=== PATIENT | female | born 1970 | race Caucasian/White ===

== ENCOUNTER 2019-09-17 12:33 | Emergency (ER) | payer BC, SELFPAY ==
[2019-09-17 12:38] VITALS: BP 115/68; PULSE 91; RESP 20; TEMP 37.5; O2SAT 100
--- NOTE | 2019-09-17 12:40 | ED.SKABFB ---
HPI - Skin/Abscess/Foreign Bdy General Chief complaint: Skin/Abscess/Foreign Body Stated complaint: RASH Time Seen by Provider: 09/17/19 12:44 Source: patient and RN notes reviewed Mode of arrival: ambulatory Limitations: no limitations History of Present Illness HPI narrative: 49-year-old female presents with concern for bilateral itching hands, burning palms that started today. She denies any new personal care products, new foods, new medicines. Reports she has been taking Mucinex for a cold, however she has taken Mucinex many times in the past with no similar effects. MD complaint: rash Related Data Home Medications Medication Instructions Recorded Confirmed guaifenesin [Mucinex] 1,200 mg PO Q12H 09/17/19 09/17/19 Allergies Allergy/AdvReac Type Severity Reaction Status Date / Time No Known Allergies Allergy Verified 09/17/19 12:44 Review of Systems Review of Systems: Narrative: CONSTITUTIONAL: Denies malaise, chills, sweats, or fever. EYES: Denies visual changes, redness, or discharge. ENT: Denies rhinorrhea, congestion, sinus pain, otalgia or sore throat. CARDIOVASCULAR: Denies chest pain, palpitations, or edema. RESPIRATORY: Denies cough or dyspnea. GASTROINTESTINAL: Denies abdominal pain, nausea, vomiting, diarrhea, SKIN: Reports bilateral hand itching, palmar burning, hives. Denies any other rash All systems reviewed & are unremarkable except as noted in HPI and below PMFSH Comments At time of signature, agree with nursing past medical, surgical, social and family history. There is no relevant family history pertinent to the presenting complaint Exam Narrative: Exam Narrative: GENERAL: Well-appearing, well-nourished, and in no acute distress. HEAD: Normocephalic EYES: PERRLA, conjunctivae clear ENT: Mucous membranes moist. Oropharynx without edema, erythema or lesions. No angioedema noted NECK: Supple. No lymphadenopathy. CHEST: No respiratory distress. Clear to auscultation. No bony deformities, no asymmetry. Speaks in full sentences. HEART: Regular rate and rhythm. No murmur heard. Normal peripheral pulses. SKIN: Warm, dry. Urticarial hives noted on the dorsal aspect of both hands, palmar aspect erythematous bilaterally NEURO: Alert and oriented x3. PSYCH: Normal mood and affect Course Course Emergency Course: Patient is aware of diagnosis, understands and agrees to treatment plan. Anticipatory guidance given. Patient agrees to follow-up as directed and is aware of reasons to seek care at the emergency department. Portions of this record may have been created with voice recognition software Vital Signs Vital signs: Vital Signs Temperature 99.5 F 09/17/19 12:38 Pulse Rate 91 09/17/19 12:38 Respiratory Rate 20 09/17/19 12:38 Blood Pressure 115/68 09/17/19 12:38 Pulse Oximetry 100 09/17/19 12:38 Temperature 99.5 F 09/17/19 12:38 Pulse Rate 91 09/17/19 12:38 Respiratory Rate 09/17/19 12:38 Blood Pressure 115/68 09/17/19 12:38 Pulse Oximetry 100 09/17/19 12:38 Reviewed. MDM - Skin/Abscess/Foreign Bdy MDM Narrative Medical decision making narrative: Does not appear at this time to be erythema multiforme, bullous, SJS, TEN; no evidence at this time to suggest RMSF, endocarditis or Lyme disease; patient looks well, nontoxic and is tolerating oral intake; no neurologic signs or symptoms; no headache, photophobia or neck pain; afebrile; appropriate for initial outpatient treatment; discussed the importance of follow-up, patient agrees; question, viral exanthema, contact dermatitis, allergic dermatitis, eczema, urticaria. No soft palate or uvula edema, no tongue, lip edema or other mucosal involvement, no respiratory compromise, no stridor, no wheezing, no wheezing, no history of syncope, no hypotension, no nausea, vomiting, or diarrhea. Instructed patient to go to nearest ER immediately for any worsening symptoms including but not limited to: fever, spreading rash
== END 2019-09-17 12:58 | disposition home or self-care (01) ==
PROVIDERS: Emergency Provider Nurse Practitioner; PCP Internal Medicine
DX: L50.9 Urticaria, unspecified (principal)
CPT/HCPCS: 99213; G0463

== ENCOUNTER 2019-09-17 22:01 | Emergency (ER) | payer BC, SELFPAY ==
--- NOTE | ~2019-09-17 | XR_ITS ---
EXAMINATION: XR chest 2V 09/17/2019 22:57 INDICATION: Cough and congestion with fever PROCEDURE: 2 view chest COMPARISON: 01/30/2016 FINDINGS: The lungs are clear. The cardiomediastinal silhouette is within normal limits. There are no pleural effusions. There is no pneumothorax suspected. IMPRESSION: 1: NO ACUTE CARDIOPULMONARY DISEASE. Reviewed, dictated and finalized at location A. [employer]
--- NOTE | 2019-09-17 22:10 | ED.FEVER ---
HPI - Fever General Chief Complaint: Fever Stated Complaint: headache, cough Time Seen by Provider: 09/17/19 22:09 Source: patient Mode of arrival: ambulatory Limitations: no limitations History of Present Illness HPI Narrative: The pt is a 49 y/o female who presents to the ED with c/o cough, fever, chills, myalgia, and rash. The pt states that all of her sx began 3 days ago except the rash, which began this morning. The rash is painful and is located on her distal forearms and hands bilaterally. She was seen at Urgent Care for her rash earlier today, where she was given a topical medication and advised to take Benadryl. She notes that her other sx have been worsening since they began 3 days ago and that she has been trying Mucinex with little relief. The pt also reports sore throat, pruritus around her rash, and SOB, but denies wheezing, nausea, or vomiting. She notes that she has never had this type of rash before and that she is unaware of any recent sick contact or bug bites. The pt states that she has no other medical problems. elicited complaint: fever and other (cough, chills, myalgia, rash) Onset (ago): day(s) (all sx began 3 days ago but rash began this morning) Associated symptoms: sore throat, shortness of breath and other (pruritus) Treatments prior to arrival fever: cold medicine (Mucinex) Related Data Home Medications Medication Instructions Recorded Confirmed guaifenesin [Mucinex] 1,200 mg PO Q12H 09/17/19 09/17/19 Allergies Allergy/AdvReac Type Severity Reaction Status Date / Time No Known Allergies Allergy Verified 09/17/19 12:44 Review of Systems Review of Systems: All systems reviewed & are unremarkable except as noted in HPI and below Constitutional: Constitutional: Reports chills and Reports fever(s) ENT: Reports sore throat Respiratory: Respiratory: Reports cough, Reports dyspnea and Denies wheezing Gastrointestinal: Gastrointestinal: Denies nausea and Denies vomiting Musculoskeletal: Musculoskeletal: Reports myalgias Integumentary/Breasts: Skin/Breast: Reports pruritus and Reports rash PMFSH Past Medical History Medical History (Updated 09/18/19 @ 00:00 by Case Cruz) Anxiety Fibroids Surgical History Surgical History (Updated 09/17/19 @ 22:22 by Chikis Cramer) H/O local excision of skin lesion History of bladder surgery TVT Hx of appendectomy Hx of cholecystectomy Social History Social History (Updated 09/17/19 @ 22:24 by Chikis Cramer) Smoking status: Never smoker Exam Const: General: no acute distress and ill appearing Nutritional Appearance: well nourished HENMT: Mouth: Yes lip normal and Yes moist mucous membranes Eyes: Conjunctivae: conjunctivae normal Pupils: Equal, round and reactive pupils present Resp: Effort & Inspection: normal respiratory effort Auscultation: wheezes (mild diffuse) Cardio: Rate: regular rate Heart sounds: no murmurs GI: GI Palp: Yes Soft to palpation and No Tenderness to palpation present (GI) Auscultation: normal bowel sounds Back/Spine/Pelvis: Back: other (full ROM) Skin: General skin exam: other (uriticaria on forearms and hands bilaterally) Neuro: General: patient oriented x3 Speech: normal speech Extrem: General: full ROM Psych: Mental Status: mental status grossly normal Affect: normal affect Course Vital Signs Vital signs: Vital Signs Temperature 38.1 C H 09/17/19 22:11 Pulse Rate 112 H 09/17/19 22:11 Respiratory Rate 18 09/17/19 22:11 Blood Pressure 133/77 09/17/19 22:11 Pulse Oximetry 97 09/17/19 22:11 Temperature 38.1 C H 09/17/19 22:11 Pulse Rate 122 H 09/17/19 22:42 Respiratory Rate 20 09/17/19 22:42 Blood Pressure 133/77 09/17/19 22:11 Pulse Oximetry 97 09/17/19 22:11 MDM - Fever Lab Data Labs: Influenza A Screen Positive Reference Range: Negative Influenza B Screen Negative Reference Range: N
[2019-09-17 22:11] VITALS: BP 133/77; PULSE 112; RESP 18; TEMP 38.1; O2SAT 97
[2019-09-17 22:30] VITALS: PULSE 118; RESP 22
[2019-09-17] MEDS: KETOROLAC (*BKC) 60 MG/2 ML VIAL IM (22:34)
[2019-09-17] MEDS: ALBUTEROL SULFATE NEB 2.5 MG/0.5 ML INH 5 MG INHALATION (22:34)
[2019-09-17] MEDS: PSEUDOEPHEDRINE HCL 30 MG TABLET 60 MG PO (22:34)
[2019-09-17] MEDS: predniSONE 20 MG TABLET 60 MG PO (22:34)
[2019-09-17 22:42] VITALS: PULSE 122; RESP 20
[2019-09-17 23:58] VITALS: BP 128/77; PULSE 102; RESP 20; O2SAT 98
--- NOTE | 2019-10-18 09:37 | ED.FEVER ---
HPI - Fever General Chief Complaint: Fever Stated Complaint: headache, cough Time Seen by Provider: 09/17/19 22:09 Source: patient Mode of arrival: ambulatory Limitations: no limitations History of Present Illness HPI Narrative: She presents today with flu-like symptoms and a rash. She developed fever, congestion, myalgias, cough, and congestion a few days ago. She has been taking mucinex for her symptoms with partial relief. today she developed a raised, red, pruritic and mildly painful rash to the bilateral hands and forearms. She denies any new exposures, products. She has never had this type of rash before. Influenza testing done during triage was positive for influenza A. Associated symptoms: sore throat, shortness of breath and other (pruritus) Treatments prior to arrival fever: cold medicine (Mucinex) Related Data Home Medications Medication Instructions Recorded Confirmed guaifenesin [Mucinex] 1,200 mg PO Q12H 09/17/19 09/17/19 Allergies Allergy/AdvReac Type Severity Reaction Status Date / Time No Known Allergies Allergy Verified 09/17/19 12:44 Review of Systems Review of Systems: All systems reviewed & are unremarkable except as noted in HPI and below Constitutional: Constitutional: Reports chills, Reports fatigue and Reports fever(s) Eyes: Eyes: Denies change in vision ENT: Reports sore throat Cardiovascular: Cardiovascular: Denies chest pain Respiratory: Respiratory: Reports chest congestion, Reports cough and Reports wheezing Gastrointestinal: Gastrointestinal: Denies abdominal pain, Reports nausea and Denies vomiting Genitourinary: Genitourinary: Denies dysuria Musculoskeletal: Musculoskeletal: Reports myalgias Neurologic: Reports headache(s) Endocrine: Endocrine: Reports fatigue and Denies polydipsia [facility] Past Medical History Medical History Anxiety Fibroids Surgical History Surgical History H/O local excision of skin lesion History of bladder surgery TVT Hx of appendectomy Hx of cholecystectomy Social History Social History Smoking status: Never smoker Exam Const: General: no acute distress, alert and ill appearing acutely (mild) Orientation/consciousness: patient oriented x3 HENMT: Ears: external ears normal and TM's normal bilaterally General nose exam: Nasal discharge present Face and sinus: sinuses nontender Mouth: Yes moist mucous membranes Neck: Neck: normal visual inspection Resp: Effort & Inspection: normal respiratory effort Auscultation: clear to auscultation bilaterally Cardio: Rate: tachycardic Rhythm: regular rhythm GI: GI Palp: Yes Soft to palpation and No Tenderness to palpation present (GI) Neuro: General: patient oriented x3 and moves all extremities Speech: normal speech Extrem: General: no edema Other: erythematous papular rash of bilateral hands and wrists with minimal involvement of the palms Course Vital Signs Vital signs: Vital Signs Temperature 38.1 C H 09/17/19 22:11 Pulse Rate 112 H 09/17/19 22:11 Respiratory Rate 18 09/17/19 22:11 Blood Pressure 133/77 09/17/19 22:11 Pulse Oximetry 97 09/17/19 22:11 Temperature 38.1 C H 09/17/19 22:11 Pulse Rate 102 H 09/17/19 23:58 Respiratory Rate 20 09/17/19 23:58 Blood Pressure 128/77 09/17/19 23:58 Pulse Oximetry 98 09/17/19 23:58 MDM - Fever MDM Narrative Medical decision making narrative: The rash is most likely urticaria, could represnet rahs related to influenza. Differential Diagnosis Differential diagnosis: Likely influenza and other (urticaria, viral rash) Medical Records Attestation: I reviewed the patient's medical records. Lab Data Attestation: I reviewed the patient's lab results. Discharge Plan Discharge Clinical Impression: Influenza A, Urticaria Pat
== END 2019-09-17 23:58 | disposition home or self-care (01) ==
PROVIDERS: Emergency Provider Emergency Medicine; PCP Internal Medicine
DX: J10.1 Influenza due to other identified influenza virus with other respiratory manifestations (principal); L50.9 Urticaria, unspecified
CPT/HCPCS: 71046; 87804; 94640; 96372; 99283; A9270; J1885; J7512

== ENCOUNTER 2019-10-17 11:57 | Outpatient (CLI) | payer BC, SELFPAY ==
--- NOTE | ~2019-10-17 | XR_ITS ---
EXAMINATION: XR chest 2V DATE: 10/17/2019 12:25 INDICATION: Cough. TECHNIQUE: Frontal and lateral views of the chest were obtained. COMPARISON: Chest 2 views 09/17/2019, chest CT 06/07/2014 FINDINGS: There is minimal scarring at the lung apices. No pleural effusion or pneumothorax. The hear t size is normal. Surgical clips in the right upper quadrant are likely from cholecystectomy. IMPRESSION: 1. No acute cardiopulmonary disease. Reviewed, dictated and finalized at location A. [employer]
== END 2019-10-17 11:58 | disposition home or self-care (01) ==
LOC: ANHIMG 12:02
PROVIDERS: PCP Internal Medicine; Visit Provider Nurse Practitioner Family
DX: R05 Cough (principal)
CPT/HCPCS: 71046

== ENCOUNTER 2022-06-02 10:45 | Emergency (ER) | payer BC, SELFPAY ==
[2022-06-02 10:46] VITALS: BP 140/71; PULSE 104; RESP 18; TEMP 36.3; O2SAT 100
[2022-06-02 11:35] LABS: Influenza A QL RT-PCR Negative (Negative); Influenza B QL RT-PCR Negative (Negative); SARS-CoV-2 RNA PCR Negative
--- NOTE | 2022-06-02 12:50 | ED.URI ---
HPI - URI/Sore Throat General Chief Complaint: Upper Respiratory Infection Stated Complaint: ST, cough, cold symptoms, h/a Time Seen by Provider: 06/02/22 12:01 Source: patient Mode of arrival: ambulatory Limitations: no limitations History of Present Illness HPI Narrative: This is a 52-year-old female that presents emergency department for cold symptoms ongoing over the last couple of days. Reports sore throat, myalgias, cough. Denies fevers. Related Data Home Medications Medication Instructions Recorded Confirmed cholecalciferol (vitamin D3) 325 325 mcg PO WEEKLY 05/13/22 05/23/22 mcg (13,000 unit) capsule Allergies Allergy/AdvReac Type Severity Reaction Status Date / Time fenofibrate Allergy Mild Rash Verified 05/23/22 08:38 Review of Systems Review of Systems: CONSTITUTIONAL: Denies fever ENT: Reports rhinorrhea, congestion, sore throat RESPIRATORY: Reports cough. Denies dyspnea. All systems reviewed & are unremarkable except as noted in HPI and below PMFSH Past Medical History Medical History Anxiety Fibroids GERD (gastroesophageal reflux disease) History of postoperative nausea and vomiting Hyperlipemia Vitamin D deficiency Surgical History Surgical History H/O local excision of skin lesion History of bladder surgery (~2007) TVT History of breast augmentation (~2020) Hx of appendectomy (~2012) Hx of cholecystectomy (~1996) Hx of hysterectomy 2017 Social History Social History Smoking status: Never smoker Alcohol intake: never Substance use: never Substance use type: does not use Exam Narrative: GENERAL: Well-appearing, well-nourished, and in no acute distress. HEAD: Normocephalic, atraumatic. EYES: EOMI. ENT: Nares clear, no rhinorrhea or epistaxis. Mucous membranes moist. Oropharynx without tonsillar hypertrophy exudate or other lesions. Bilateral TMs pearly goode non-bulging NECK: Supple. No adenopathy or masses. CHEST: Clear to auscultation. No respiratory distress. No wheezes rales or rhonchi HEART: Regular rate and rhythm. No murmur heard. Normal peripheral pulses. EXTREMITIES: Normal range of motion. No edema. SKIN: Warm, dry, no rash. NEURO: No focal deficits. Alert and oriented x3. PSYCH: Normal mood and affect Course Vital Signs Vital signs: Vital Signs Temperature 97.4 F L 06/02/22 10:46 Pulse Rate 104 H 06/02/22 10:46 Respiratory Rate 18 06/02/22 10:46 Blood Pressure 140/71 06/02/22 10:46 Pulse Oximetry 100 06/02/22 10:46 Oxygen Delivery Room Air 06/02/22 10:46 Temperature 97.4 F L 06/02/22 10:46 Pulse Rate 104 H 06/02/22 10:46 Respiratory Rate 18 06/02/22 10:46 Blood Pressure 140/71 06/02/22 10:46 Pulse Oximetry 100 06/02/22 10:46 Oxygen Delivery Room Air 06/02/22 10:46 MDM - URI/Sore Throat MDM Narrative Medical decision making narrative: Patient presents emergency department for cold symptoms ongoing over the last couple of days. She is afebrile and nontoxic-appearing. Lungs are clear on exam. Influenza, COVID and strep screens are negative. Patient was updated on case findings. Instructed on continued symptomatic management of viral infection. She is to follow-up with her primary care doctor. She was given warnings to return to the ER Lab Data Attestation: I reviewed the patient's lab results. Labs: Lab Results 06/02/22 Range/Units 10:51 Influenza A (RT-PCR) Negative (Negative) Influenza B (RT-PCR) Negative (Negative) SARS-CoV-2 RNA (RT-PCR) Negative Strep Screen Presumptive Negative *(Reference Range: Negative)* Critical Care Time Critical Care Time Critical Care Time: No Discharge Plan Discharge Clinical Impression: Upper respiratory
[2022-06-02 13:06] VITALS: BP 115/78; PULSE 85; RESP 14; O2SAT 96
== END 2022-06-02 13:07 | disposition home or self-care (01) ==
PROVIDERS: Emergency Provider Emergency Medicine; PCP Nurse Practitioner Family
DX: J06.9 Acute upper respiratory infection, unspecified (principal); Z20.822 Contact with and (suspected) exposure to COVID-19; E78.5 Hyperlipidemia, unspecified; E55.9 Vitamin D deficiency, unspecified; K21.9 Gastro-esophageal reflux disease without esophagitis; Z90.710 Acquired absence of both cervix and uterus
CPT/HCPCS: 87081; 87502; 87880; 99283; C9803; U0003; U0005

== ENCOUNTER 2022-12-17 23:29 | Observation (INO) | payer BC, SELFPAY ==
--- NOTE | ~2022-12-17 | NM_ITS ---
EXAMINATION: NM ervin stress w perfusion DATE: 12/18/2022 13:10 INDICATION: Chest pain. TECHNIQUE: Rest images were obtained following intravenous administration of 9.4 mCi Tc99m tetrofosmi n (Myoview). The patient was infused intravenously with Lexiscan (regadenoson). Then, 34.5 mCi Tc99m tetrofosmin (Myoview) was administered intravenously, and stress images were obtained. Data was recon structed into short axis and horizontal and vertical long axis SPECT images. Gated SPECT images were also obtained. COMPARISON: Chest CT 12/18/2022 FINDINGS: There is no definite reversible or fixed perfusion abnormality to suggest ischemia or infar ction. There is no segmental wall motion abnormality. Left ventricular ejection fraction measures > 70%. IMPRESSION: 1. No definite ischemia or infarct. 2. Normal left ventricular ejection fraction measuring >70%. Reviewed, dictated and finalized at location A.
--- NOTE | ~2022-12-17 | CT_ITS ---
Clinical Indication: Pleuritic chest pain CT Scan of the Chest with Contrast: Technique: Contiguous sections were acquired throughout the chest after intravenous administration of 100 cc of Omnipaque 350. Dose reduction technique was used on this scan by utilizing automated expos ure control and iterative reconstruction technique. The dose-length product (DLP) was 479.22 mGy-cm. COMPARISON: 06/07/2014 Findings: There is no evidence of any significant mediastinal, hilar or axillary lymphadenopathy. There is no f illing defect in the pulmonary arterial tree to suggest pulmonary embolus. There is no evidence of ao rtic dissection or aneurysm. There is no evidence of pleural or pericardial effusion. The lungs are clear. No pulmonary nodules or infiltrates are noted. Images through the upper abdomen reveal no abnormalities. Impression: No evidence of pulmonary embolus, aortic dissection, or aortic aneurysm. Clear lungs. Reviewed, dictated and finalized at [facility]. Impression: No evidence of pulmonary embolus, aortic dissection, or aortic aneurysm. Clear lungs.
--- NOTE | ~2022-12-17 | XR_ITS ---
Clinical Indication: Chest pain PA and lateral views of the chest: Comparison: 10/17/2019 Findings: The lungs are clear, without evidence of focal consolidation or pleural effusion. Cardiome diastinal silhouette is within normal limits. Bones and soft tissues are unremarkable. Impression: Normal chest. Reviewed, dictated and finalized at location . Impression: Normal chest.
--- NOTE | 2022-12-17 23:30 | ECG_ITS ---
Measurements Intervals [place] Rate: 78 P: 41 TN: 152 QRS: 14 QRSD: 84 T: 29 QT: 354 QTc: 405 Interpretive Statements SINUS RHYTHM NORMAL ECG NO PREVIOUS ECG AVAILABLE FOR COMPARISON Electronically Signed On 12-18-2022 6:31:33 CDT by Mario Mcbride D.O.
[2022-12-17 23:40] VITALS: BP 133/89; PULSE 91; RESP 18; TEMP 36.6; O2SAT 100
[2022-12-17 23:51] LABS: Basophils Absolute Auto 0.1 K/mm3 (0.0-0.1); Basophils Percent Auto 0.8 % (0.2-1.2); Eosinophils Absolute Auto 0.4 K/mm3 (0-0.3); Eosinophils Percent Auto 3.5 % (0-4.4); Hemoglobin 13.9 g/dL (12.0-15.0); Immature Granulocyte Absolute 0.03 K/mm3 (0.00-0.031); Immature Granulocyte Percent A 0.3 % (0-0.5); Lymphocytes Absolute Auto 2.86 K/mm3 (0.9-3.2); Lymphocytes Percent Auto 28.9 % (18.3-44.2); Mean Corpuscular HGB Conc 33.1 g/dl (32-36); Mean Corpuscular Hemoglobin 29.8 pg (26-34); Mean Corpuscular Volume 89.9 fl (80-100); Mean Platelet Volume 9.4 fl (7.4-10.4); Monocytes Absolute Auto 0.6 K/mm3 (0.1-0.6); Monocytes Percent Auto 6.2 % (2.6-8.5); Neutrophils Percent Auto 60.3 % (45.5-73.1); Platelet Count Result 276 k/mm3 (150-375); Red Blood Count 4.67 M/mm3 (4.2-5.4); White Blood Count 9.9 K/mm3 (4.5-10.0)
[2022-12-17 23:56] VITALS: BP 120/78; PULSE 88; PULSE 89; RESP 15; O2SAT 97
[2022-12-17] MEDS: ASPIRIN 81 MG CHEWABLE TABLET 324 MG PO (23:56)
[2022-12-17 23:58] VITALS: PULSE 97; RESP 17; O2SAT 99
[2022-12-17 23:59] VITALS: O2SAT 96
[2022-12-18] VITALS (56 sets, daily range): BP systolic 92–129; BP diastolic 53–83; PULSE 65–92; RESP 10–22; TEMP 36.4–36.6; O2SAT 93–100; BMI 29.7
[2022-12-18 00:02] LABS: Prothrombin Time 13.3 Seconds (11.1-14.7)
[2022-12-18 00:03] LABS: Partial Thromboplastin Time 31.3 SECONDS (22.3-36.8)
[2022-12-18 00:08] LABS: Alanine Aminotransferase 29 U/L (6-35); Albumin Level 4.3 g/dL (3.5-5.1); Alkaline Phosphatase 98 U/L (38-126); Anion Gap 7 mmol/L (8-16); Aspartate Amino Transferase 34 U/L (14-36); Bilirubin,Total 0.5 mg/dL (0.2-1.3); Blood Urea Nitrogen 16 mg/dL (7-17); Calcium 8.8 mg/dL (8.4-10.2); Carbon Dioxide 30 mmol/L (22-30); Chloride 103 mmol/L (98-107); Estimated CRCL calculation 65 ml/min; Estimated Glomerular Filt Rate > 60; Glucose 106 mg/dL (65-110); Lipase 142 U/L (23-300); Sodium 140 mmol/L (137-145)
[2022-12-18 00:19] LABS: Troponin I < 0.012 ng/mL (0.000-0.034)
[2022-12-18] MEDS: NITROGLYCERIN SL 0.4 MG TABLET SUBLINGUAL (01:02)
[2022-12-18] MEDS: ONDANSETRON INJ 4 MG/2 ML VIAL IV PUSH ×4 (01:12→14:00)
[2022-12-18] MEDS: SODIUM CHLORIDE 0.9% IV 1,000 ML 999 ML IV CONT ×2 (01:14→02:29)
--- NOTE | 2022-12-18 01:17 | ED.CHESTPAIN ---
HPI - Chest Pain General Chief Complaint: Chest Pain <SAMANTHA Tobin Last Filed: 12/18/22 03:12> Stated Complaint: chest pain <SAMANTHA Tobin Last Filed: 12/18/22 03:12> Time Seen by Provider: 12/18/22 00:44 <SAMANTHA Tobin Last Filed: 12/18/22 03:12> Source: patient <SAMANTHA Tobin Last Filed: 12/18/22 03:12> Mode of arrival: ambulatory <SAMANTHA Tobin Last Filed: 12/18/22 03:12> Limitations: no limitations <SAMANTHA Tobin Last Filed: 12/18/22 03:12> History of Present Illness HPI narrative: This is a 52-year-old female who presents to the ED with chief complaint of left-sided chest pain that radiates into the left axilla onset 8 PM this evening. Patient states the pain has been constant since onset. Rates ports the pain is 8 out of 10. Describes the pain as a pressure. She states it was associated with nausea at onset. She states deep breathing exacerbates the pain. No CAD history. Denies shortness of breath, vomiting, dizziness, lightheadedness, sweats, any recent illness. Denies leg swelling or palpitations. <Lico Napoles PA-C - Last Filed: 12/18/22 03:12> Related Data Home Medications: Home Medications Medication Instructions Recorded Confirmed cholecalciferol (vitamin D3) 325 325 mcg PO WEEKLY 05/13/22 05/23/22 mcg (13,000 unit) capsule <SAMANTHA Tobin Last Filed: 12/18/22 03:12> Allergies/Adverse Reactions: Allergies Allergy/AdvReac Type Severity Reaction Status Date / Time fenofibrate Allergy Mild Rash Verified 05/23/22 08:38 <SAMANTHA Tobin Last Filed: 12/18/22 03:12> Review of Systems Review of Systems: CONSTITUTIONAL: Denies fever, chills, or sweats. EYES: Denies visual changes, redness, or discharge. ENT: Denies rhinorrhea, congestion, sore throat, or otalgia. CARDIOVASCULAR: See HPI RESPIRATORY: Denies cough or dyspnea. GASTROINTESTINAL: Denies abdominal pain, nausea, vomiting, or diarrhea. GENITOURINARY: Denies dysuria or hematuria. SKIN: Denies rash or itching. MUSCULOSKELETAL: Denies back pain, joint pain, or myalgia. NEUROLOGIC: Denies headache, numbness, dizziness, or weakness. PSYCHIATRIC: Denies anxiety or depression. <Lico Napoles PA-C - Last Filed: 12/18/22 03:12> PMFSH Past Medical History Medical History: Medical History (Updated 12/18/22 @ 04:20 by Paige Brand MD) Anxiety Fibroids GERD (gastroesophageal reflux disease) History of postoperative nausea and vomiting Hyperlipemia Vitamin D deficiency <Lico Napoles PA-C - Last Filed: 12/18/22 03:12> Surgical History Surgical History: Surgical History H/O local excision of skin lesion History of bladder surgery (~2007) TVT History of breast augmentation (~2020) Hx of appendectomy (~2012) Hx of cholecystectomy (~1996) Hx of hysterectomy 2017 <Lico Napoles PA-C - Last Filed: 12/18/22 03:12> Social History Social History: Social History Smoking status: Never smoker Alcohol intake: never Substance use: never Substance use type: does not use <Lico Napoles PA-C - Last Filed: 12/18/22 03:12> Exam Narrative: GENERAL: Well-appearing, well-nourished, and in no acute distress. HEAD: Normocephalic, atraumatic. EYES: PERRLA and EOMI. ENT: Nares clear, no rhinorrhea or epistaxis. Mucous membranes moist. Oropharynx without tonsillar hypertrophy exudate or other lesions. NECK: Supple. No adenopathy or masses. CHEST: No respiratory distress. Clear to auscultation. No wheezes rales or rhonchi HEART: Regular rate and rhythm. No murmur heard. Normal peripheral pulses. ABDOMEN: Soft, nontender, nondistended, normal active bowel sounds. EXTREMITIES: Normal range of motion. No edema. SKIN: Warm, dry, no rash. NEURO: Alert and oriented x3. No focal de
--- NOTE | 2022-12-18 01:18 | PC.NURSE ---
Patient received 1 nitro sublingual at 0102 with a chest pain of 8/10. When re-assessing chest pain at 010 patient stated chest pain was 5/10, BP was 128/81. At 010 another nitro sublingual was given. When re-assessing chest pain patient stated pain was 3/10 and BP was 105/57. Notified PHUONG Barfield.
[2022-12-18] MEDS: MORPHINE SULFATE (*CRX) 4 MG/ML INJ IV PUSH (01:22)
[2022-12-18 02:11] LABS: D Dimer 1.18 ug/mL (<0.48)
[2022-12-18] MEDS: METOCLOPRAMIDE HCL INJ 10 MG/2 ML VIAL IV PUSH (02:31)
[2022-12-18 03:19] LABS: Troponin I < 0.012 ng/mL (0.000-0.034)
[2022-12-18 03:26] LABS: NT Pro B Type Natriuretic Pept < 20 pg/mL (19.9-100)
--- NOTE | 2022-12-18 03:29 | PM.IMHP ---
H&P: HPI History of Present Illness Date/Time: 12/18/22 03:29 Chief Complaint: Chest pain Narrative: This is a 52-year-old female past medical history significant for GERD, generalized anxiety disorder. Patient presents to the emergency room due to chest pain localized to the precordial area with radiation to her left armpit, had lightheadedness, felt nauseated with no vomiting no syncope or near syncope no diaphoresis. This episode occurred while patient was resting watching TV, has been in her usual state of health. Preliminary workup was significant for chest x-ray was reported as: Clinical Indication: Chest pain ?PA and lateral views of the chest: Comparison: 10/17/2019 Findings: The lungs are clear, without evidence of focal consolidation or pleural effusion.? Cardiomediastinal silhouette is within normal limits. Bones and soft tissues are unremarkable. ? Impression: ? Normal chest. CTA of the chest was reported as: CT Scan of the Chest with Contrast: Technique: Contiguous sections were acquired throughout the chest after intravenous administration of 100 cc of Omnipaque 350. Dose reduction technique was used on this scan by utilizing automated exposure control and iterative reconstruction technique. The dose-length product (DLP) was 479.22 mGy-cm. COMPARISON: 06/07/2014 Findings: There is no evidence of any significant mediastinal, hilar or axillary lymphadenopathy. There is no filling defect in the pulmonary arterial tree to suggest pulmonary embolus. There is no evidence of aortic dissection or aneurysm. There is no evidence of pleural or pericardial effusion. The lungs are clear. No pulmonary nodules or infiltrates are noted. Images through the upper abdomen reveal no abnormalities. Impression: No evidence of pulmonary embolus, aortic dissection, or aortic aneurysm. Clear lungs. Patient is been placed in observation for further evaluation management and treatment. Review of Systems Review of Systems: Chest pain Constitutional: Constitutional: Denies chills, Denies fever(s), Denies malaise, Denies night sweats and Denies weakness Eyes: Eyes: Denies change in vision ENT: Denies dysphagia and Denies odynophagia Cardiovascular: Cardiovascular: Reports chest pain, Denies leg edema, Reports lightheadedness, Denies palpitations, Denies dyspnea and Denies dyspnea on exertion Respiratory: Respiratory: Denies chest congestion, Denies cough and Denies dyspnea Gastrointestinal: Gastrointestinal: Denies abdominal pain, Denies dyspepsia, Denies heartburn, Denies diarrhea, Reports nausea and Denies vomiting Genitourinary: Genitourinary: Denies dysuria Musculoskeletal: Musculoskeletal: Denies arthralgias and Denies joint swelling Integumentary/Breasts: Skin/Breast: Denies rash Neurologic: Denies focal weakness and Denies Sensory deficit (Neuro) Psychiatric: Psychiatric: Reports no additional psychiatric complaints and Reports as per HPI Endocrine: Endocrine: Denies cold intolerance, Denies flushing, Denies heat intolerance, Denies polyphagia, Denies polydipsia and Denies palpitations Hematologic/Lymphatic: Hematologic/Lymphatic: Reports no additional hematologic/lymphatic complaints and Reports as per HPI Allergic/Immunologic: Allergic/Immunologic: Reports no additional allergic/immunologic complaints and Reports as per HPI PMFSH Past Medical History Medical History (Updated 12/18/22 @ 04:20 by Paige Brand MD) Anxiety Fibroids GERD (gastroesophageal reflux disease) History of postoperative nausea and vomiting Hyperlipemia Vitamin D deficiency Surgical History Surgical History H/O local excision of skin lesion History of bladder surgery (~2007) TVT History of breast augmentation (~2020) Hx of appendectomy (~2012) Hx of cholecystectomy (~1996) Hx of hysterectomy 2017 Social History Social History (Reviewed
--- NOTE | 2022-12-18 04:09 | EST_ITS ---
Patient Info Name: Marcia Lopez Age: 52 years : 1970 Gender: Female Ht: 67 in Wt: 164 lbs BSA: 1.89 m2 HR: 73 bpm BP: 117 / 79 mmHg Heart Rhythm: Sinus Rhythm Exam Date: 12/18/2022 12:03 PM Exam Location: [facility] Stress Patient Status: Outpatient Admit Date: 12/18/2022 Staff Ordering Physician: Paige Brand MD Attending Provider: Paige Brand MD Exercise Technologist: Eda Huffman CT Exercise Physician: Mario Mcbride DO Exam Type: CA stress ervin w NM Study Info Indications R07.89 - Other chest pain A regadenoson stress test was performed. Summary 1. 1. Negative lexiscan stress test for ischemic ST changes by ECG criteria. 2. 2. Stable hemodynamics throughout the test. 3. 3. Nuclear scan to follow and will be reported separately. Please correlate with it. 4. 4. Patient informed of the above results. Protocol: Lexiscan Stress ECG Details Stage: REST Duration (min): 1 min : 30 sec HR (bpm): 71 SBP (mmHg): 117 DBP (mmHg): 79 Stage: REST Duration (min): 7 min : 28 sec HR (bpm): 81 SBP (mmHg): 117 DBP (mmHg): 79 Stage: STAGE 1 Duration (min): 1 min : 0 sec HR (bpm): 120 SBP (mmHg): 128 DBP (mmHg): 80 Stage: RECOVERY Duration (min): 1 min : 0 sec HR (bpm): 110 SBP (mmHg): 128 DBP (mmHg): 80 Stage: RECOVERY Duration (min): 2 min : 0 sec HR (bpm): 111 SBP (mmHg): 128 DBP (mmHg): 80 Stage: RECOVERY Duration (min): 3 min : 0 sec HR (bpm): 104 SBP (mmHg): 124 DBP (mmHg): 77 Stage: RECOVERY Duration (min): 3 min : 4 sec HR (bpm): 106 SBP (mmHg): 124 DBP (mmHg): 77 Rest HR: 81 bpm Peak HR: 120 bpm Rest Sys BP: 117 mmHg Peak Sys BP: 128 mmHg Max Pred HR: 168 bpm % Max Pred HR: 71 % Target HR: 143 bpm Max RPP: 15,360 bpm*mmHg Termination Reason: Completed protocol Cardiac Symptoms: Shortness of breath Total Time: 1 min : 0 sec Rest Albert BP: 79 mmHg Peak Albert BP: 80 mmHg Total Dose: 0.4 mg Resting ECG Sinus rhythm. Stress ECG No ST changes. Arrhythmias None. Report Signatures
[2022-12-18] MEDS: SODIUM CHLORIDE 0.9% IV 1,000 ML 125 ML IV CONT (04:48)
[2022-12-18 06:22] LABS: Troponin I < 0.012 ng/mL (0.000-0.034)
--- NOTE | 2022-12-18 11:25 | PC.NURSE ---
Pt taken for ervin scan
--- NOTE | 2022-12-18 13:05 | PC.NURSE ---
pt returned from ervin scan
[2022-12-18] MEDS: ACETAMINOPHEN 500 MG TABLET 1000 MG PO (14:01)
--- NOTE | 2022-12-18 14:11 | PM.DS ---
DS: Admitting Diagnosis Discharge Date 12/18/22 Admitting Diagnosis cp DS: Discharge Diagnosis Discharge Diagnosis (1) Chest pain at rest: Code(s): R07.9 - Chest pain, unspecified Status: Acute Assessment and Plan: Lexiscan stress test in a.m. (2) GERD (gastroesophageal reflux disease): Code(s): K21.9 - Gastro-esophageal reflux disease without esophagitis Status: Acute (3) Anxiety: Code(s): F41.9 - Anxiety disorder, unspecified Status: Acute DS: Summary Hospital Course Hospital Course: admitted for cp stress test negative no further mota needed Time Spent with Patient Time attestation: Total time spent providing and/or coordinating discharge services: Exam Narrative: Patient is laying in a stretcher Const: General: comfortable, no acute distress, well developed, alert, awake and average body habitus Nutritional Appearance: average body habitus Orientation/consciousness: patient oriented x3 HENMT: Head: normal to inspection, normocephalic and atraumatic Ears: hearing grossly normal bilaterally Face/Nose/Sinus: normal facial exam Face and sinus: normal facial exam Eyes: General: appearance normal, both eyes and all related structures Pupils: Equal, round and reactive pupils present EOM: EOMs intact bilaterally Neck: Neck: full ROM, no lymphadenopathy and no JVD Thyroid: thyroid normal Lymphatic: no lymphadenopathy noted Resp: Effort & Inspection: normal respiratory effort and able to speak in complete sentences Auscultation: clear to auscultation bilaterally Cardio: Jugular venous distension: no JVD Rate: regular rate Rhythm: regular rhythm Heart sounds: S1 normal heart sound present and S2 normal heart sound present : General: Yes deferred Skin: Rashes: no rashes Wounds: no wounds Neuro: General: patient oriented x3 and CN's II-XI intact bilaterally Cranial nerves: Yes CN's II-XII intact bilaterally and Yes Equal, round and reactive pupils present Cognition (Neuro): normal cognition Speech: normal speech Gait exam (Neuro): Normal gait present Motor exam (neuro): 5/5 motor strength present throughout Extrem: General: normal to inspection, full ROM, no joint enlargement and no pedal edema DS: Data Data Completed and Pending Labs on day of discharge: Labs from last 24 hours 12/18/22 12/18/22 12/18/22 05:44 02:38 01:06 WBC RBC Hgb Hct MCV MCH MCHC RDW Plt Count MPV Immature Gran % (Auto) Neut % (Auto) Lymph % (Auto) [place] % (Auto) Eos % (Auto) Baso % (Auto) Lymph # (Auto) [place] # (Auto) Eos # (Auto) Baso # (Auto) Abs Immat Gran (auto) Absolute Neuts (auto) Absolute Nucleated RBC Nucleated RBC % PT INR APTT D-Dimer 1.18 H Sodium Potassium Chloride Carbon Dioxide Anion Gap BUN Creatinine Estim Creat Clear Calc Estimated GFR Glucose Calcium Total Bilirubin AST ALT Alkaline Phosphatase Troponin I < 0.012 < 0.012 NT-Pro-B Natriuret Pep < 20 Total Protein Albumin Lipase 12/17/22 23:38 WBC 9.9 RBC 4.67 Hgb 13.9 Hct 42.0 MCV 89.9 MCH 29.8 MCHC 33.1 RDW 13.0 Plt Count 276 MPV 9.4 Immature Gran % (Auto) 0.3 Neut % (Auto) 60.3 Lymph % (Auto) 28.9 [place] % (Auto) 6.2 Eos % (Auto) 3.5 Baso % (Auto) 0.8 Lymph # (Auto) 2.86 [place] # (Auto) 0.6 Eos # (Auto) 0.4 H Baso # (Auto) 0.1 Abs Immat Gran (auto) 0.03 Absolute Neuts (auto) 6.0 Absolute Nucleated RBC 0.0 Nucleated RBC % 0.0 PT 13.3 INR 1.0 APTT 31.3 D-Dimer Sodium 140 Potassium 4.0 Chloride 103 Carbon Dioxide 30 Anion Gap 7 L BUN 16 Creatinine 0.90 Estim Creat Clear Calc 65 Estimated GFR > 60 Glucose 106 Calcium 8.8 Total Bilirubin 0.5 AST 34 ALT 29 Alkaline Phosphatase 98 Troponin I < 0.012 NT-Pro-B Natriuret Pep Total Protein 7.0 Albumin 4.3 Lipase 14
== END 2022-12-18 15:00 | disposition home or self-care (01) ==
LOC: ANHED 12-18 03:10 → ANHCPC 12-18 10:55 → ANHIMU 12-19 11:05
PROVIDERS: Emergency Medicine; Admitting Provider Internal Medicine; Emergency Provider Physician Assistant; PCP Nurse Practitioner Family; Visit Provider Chiropractor
DX: R07.9 Chest pain, unspecified (principal); K21.9 Gastro-esophageal reflux disease without esophagitis; F41.1 Generalized anxiety disorder; E78.5 Hyperlipidemia, unspecified; E55.9 Vitamin D deficiency, unspecified; Z79.51 Long term (current) use of inhaled steroids; Z79.899 Other long term (current) drug therapy
CPT/HCPCS: 36415; 71046; 71275; 78452; 80053; 83690; 83880; 84484; 85025; 85380; 85610; 85730; 93005; 93017; 96361; 96374; 96375; 96376; 99285; A9270; A9502; G0378; J0131; J2270; J2405; J2765; J2785; J7030; Q9967

== ENCOUNTER 2023-08-01 12:02 | Emergency (ER) | payer BC, SELFPAY ==
[2023-08-01 12:02] VITALS: BP 131/84; PULSE 72; RESP 16; TEMP 36.6; O2SAT 98
--- NOTE | 2023-08-01 12:36 | ED.GENADULT ---
HPI - General Adult General Chief complaint: Wound/Laceration Stated complaint: finger lac Time Seen by Provider: 08/01/23 12:28 History of Present Illness HPI narrative: 53-year-old female presenting to the department for evaluation for a laceration to her distal aspect of her right 5th finger. patient was trying D.O. per container but was using a a cigar cutter and accidentally pinched the tip of her pinky causing a superficial laceration. Related Data Home Medications Medication Instructions Recorded Confirmed albuterol sulfate 90 mcg/actuation 1 puff inhalation PRN PRN Cough 12/18/22 12/18/22 aerosol inhaler bupropion HCl 150 mg 24 hr tablet, 300 mg PO DAILY 12/18/22 12/18/22 extended release doxycycline monohydrate 100 mg 1 mg PO DAILY 12/18/22 12/18/22 tablet meloxicam 15 mg tablet 15 mg PO PRN back pain 12/18/22 12/18/22 omeprazole 40 mg capsule,delayed 40 mg PO DAILY 12/18/22 12/18/22 release tobramycin 0.3 %-dexamethasone 0.1 1 drp EACH EYE DAILY 12/18/22 12/18/22 % eye drops,suspension Allergies Allergy/AdvReac Type Severity Reaction Status Date / Time fenofibrate Allergy Mild Rash Verified 12/18/22 11:07 Review of Systems Review of Systems: All systems reviewed & are unremarkable except as noted in HPI and below PMFSH Past Medical History Medical History (Updated 08/01/23 @ 12:44 by Homar Gutierrez MD) Anxiety Fibroids GERD (gastroesophageal reflux disease) History of postoperative nausea and vomiting Hyperlipemia Vitamin D deficiency Surgical History Surgical History H/O local excision of skin lesion History of bladder surgery (~2007) TVT History of breast augmentation (~2020) Hx of appendectomy (~2012) Hx of cholecystectomy (~1996) Hx of hysterectomy 2017 Social History Social History Smoking status: Never smoker Second hand tobacco smoke exposure: Yes (as a child) Alcohol intake: former Substance use: never Substance use type: does not use Lack of Transportation: No Lack of Food: Never True Current Housing: I Have Housing Concerned About Future Housing: No Difficulty Paying Gas/Electric Bills: No Difficulty Paying for Meds: No Currently Unemployed: No Education: Trade/Vocational Certificate Difficulty w/ Childcare or Family Care: No Spiritual care concerns: No Exam Narrative: APPEARANCE: Well appearing, no pain, no distress, well-nourished. HEAD: normocephalic, atraumatic. EYES: PERRLA/EOMI, conjunctivae clear. NOSE: Normal no drainage NECK: Supple. No adenopathy, no masses. RESPIRATORY: Airway patent, respirations nonlabored. Clear to auscultation bilaterally, no rales, rhonchi, wheezing. CARDIOVASCULAR: Regular rate and rhythm without murmurs rubs or gallops. ABDOMINAL: Soft, nontender, nondistended, normal bowel sounds MUSCULOSKELETAL: Moves all extremities. Strength/ROM intact, No edema, No calf tenderness. NEURO: Alert. Cranial nerves II through XII intact. Grossly intact SKIN: Superficial laceration to the distal aspect of 5th finger Course Course Emergency Course: 53-year-old female presented the ED for evaluation of a laceration to the distal aspect of her right 5th finger. Laceration is superficial and does not need suture repair. Bleeding was controlled. Dressing was applied and patient was encouraged of close follow-up with her primary care physician. Vital Signs Vital signs: Vital Signs Temperature 97.9 F 08/01/23 12:02 Pulse Rate 72 08/01/23 12:02 Respiratory Rate 16 08/01/23 12:02 Blood Pressure 131/84 08/01/23 12:02 Pulse Oximetry 98 08/01/23 12:02 Temperature 98.3 F 08/01/23 13:03 Pulse Rate 78 08/01/23 13:03 Respiratory Rate 16 08/01/23 13:03 Blood Pressure 126/80 08/01/23 13:03 Pulse Oximetry 100 08/01/23 13:03 Medical Decision
[2023-08-01] MEDS: TETANUS,DIPHTHERIA,AC PERTUSSIS ADULT (0.5 ML) BOOSTRIX IM (12:58)
[2023-08-01] MEDS: CELLULOSE OXIDIZED 2 x 14 INCH 1 PKT XX (12:59)
[2023-08-01 13:03] VITALS: BP 126/80; PULSE 78; RESP 16; TEMP 36.8; O2SAT 100
== END 2023-08-01 13:03 | disposition home or self-care (01) ==
PROVIDERS: Emergency Provider Emergency Medicine; PCP Nurse Practitioner Family
DX: S61.216A Laceration without foreign body of right little finger without damage to nail, initial encounter (principal); E78.5 Hyperlipidemia, unspecified; E55.9 Vitamin D deficiency, unspecified; K21.9 Gastro-esophageal reflux disease without esophagitis; F41.9 Anxiety disorder, unspecified; W23.0XXA Caught, crushed, jammed, or pinched between moving objects, initial encounter; Z90.49 Acquired absence of other specified parts of digestive tract; Z90.710 Acquired absence of both cervix and uterus
CPT/HCPCS: 90471; 90715; 99282

== ENCOUNTER 2024-04-23 15:38 | Emergency (ER) | payer BC, SELFPAY ==
--- NOTE | ~2024-04-23 | CT_ITS ---
EXAMINATION: CT knee LT wo con DATE: 04/23/2024 16:32 INDICATION: Fall. Unable to bear weight on left knee. TECHNIQUE: Computed tomography (CT) of the left knee was performed without intravenous contrast. Auto mated exposure control and iterative reconstruction technique were employed. Exam dose: 558.85 mGy-c m total exam DLP. COMPARISON: None FINDINGS: Small knee joint effusion. There is subarticular cystic change of the patella. Mild superior pole patellar enthesopathy. No fracture, dislocation, periosteal reaction or bone destruction or radiopaque intra-articular loose body or chondrocalcinosis is detected. Knee joint spaces are relatively well preserved. IMPRESSION: Mild knee joint effusion No fracture or dislocation, periosteal reaction or bone destruction Reviewed, dictated and finalized at [facility]. Reviewed, dictated and finalized at [facility].
[2024-04-23 15:43] VITALS: BP 141/85; PULSE 98; RESP 20; TEMP 36.9; O2SAT 96
[2024-04-23] MEDS: HYDROmorphone HCL INJ (*CRX) 1 MG/ML SYR IM (16:13)
--- NOTE | 2024-04-23 16:14 | ED.LOWEXIN ---
HPI - Extremity Injury (Lower) General Chief Complaint: Extremity Injury, Lower Stated Complaint: left knee pain Time Seen by Provider: 04/23/24 15:51 History of Present Illness HPI Narrative: This is a 54-year-old healthy female with a history of osteoarthritis who presents to the emergency department a chief complaint of left knee pain. Patient states that it is a history of significant osteoarthritis in the left knee with previous injections of hydrocortisone with temporary relief of her pain. No surgeries or knee replacements. She has last seen her orthopedic surgery at [facility] in 2023. Today she was walking rather briskly when she felt a significant popping sensation and pain immediately in her left knee behind the popliteal fossa. She immediately was not able to bear weight and fell to the ground but able to catch herself. She has not sustained any trauma otherwise did not hit her head or lose consciousness. She is having significant difficulty moving the left knee and feels like she might have tore something. Recent MRI in October that only shows osteoarthritis without any ligamentous or musculoskeletal concerns otherwise. Was previously normal state of health. Related Data Home Medications Medication Instructions Recorded Confirmed albuterol sulfate 90 mcg/actuation 1 puff inhalation PRN PRN Cough 12/18/22 12/18/22 aerosol inhaler bupropion HCl 150 mg 24 hr tablet, 300 mg PO DAILY 12/18/22 12/18/22 extended release doxycycline monohydrate 100 mg 1 mg PO DAILY 12/18/22 12/18/22 tablet meloxicam 15 mg tablet 15 mg PO PRN back pain 12/18/22 12/18/22 omeprazole 40 mg capsule,delayed 40 mg PO DAILY 12/18/22 12/18/22 release tobramycin 0.3 %-dexamethasone 0.1 1 drp EACH EYE DAILY 12/18/22 12/18/22 % eye drops,suspension Allergies Allergy/AdvReac Type Severity Reaction Status Date / Time fenofibrate Allergy Mild Rash Verified 04/23/24 15:47 Review of Systems Review of Systems: As reviewed above in HPI PMFSH Past Medical History Medical History Anxiety Fibroids GERD (gastroesophageal reflux disease) History of postoperative nausea and vomiting Hyperlipemia Vitamin D deficiency Surgical History Surgical History H/O local excision of skin lesion History of bladder surgery (~2007) TVT History of breast augmentation (~2020) Hx of appendectomy (~2012) Hx of cholecystectomy (~1996) Hx of hysterectomy 2017 Social History Social History Smoking status: Never smoker Second hand tobacco smoke exposure: Yes (as a child) Alcohol intake: former Substance use: never Substance use type: does not use Lack of Transportation: No Lack of Food: Never True Current Housing: I Have Housing Concerned About Future Housing: No Difficulty Paying Gas/Electric Bills: No Difficulty Paying for Meds: No Currently Unemployed: No Education: Trade/Vocational Certificate Difficulty w/ Childcare or Family Care: No Spiritual care concerns: No Exam Narrative: GENERAL: Well appearing but in acute pain, conversational HEAD: [Normocephalic, atraumatic.] EYES: [PERRLA and EOMI.] CHEST: [Clear to auscultation. No respiratory distress.] HEART: 2+ peripheral pulses, regular rate and rhythm. Warm extremities EXTREMITIES: The left knee has significant tenderness to palpation in the popliteal fossa as well as the lateral and medial joint line. No tenderness over the patella or tendon insertion sites. She is able to straight leg raise with intact extensor mechanism. Able to plantar and dorsiflex the ankle. No calf tenderness or thigh tenderness or deformity. Some laxity with valgus stress, stable with Camille's. Negative posterior drawer sign. Negative anterior drawer sign. SKIN: Warm, dry, n
[2024-04-23 16:56] VITALS: BP 127/75; PULSE 66; RESP 15; O2SAT 97
[2024-04-23] MEDS: ONDANSETRON HCL ODT 4 MG TABLET PO (17:16)
[2024-04-23 18:21] VITALS: BP 122/76; PULSE 66; RESP 14; O2SAT 97
== END 2024-04-23 19:17 | disposition home or self-care (01) ==
PROVIDERS: Emergency Provider Student in an Organized Health Care Education/Training Program; PCP Internal Medicine
DX: S89.92XA Unspecified injury of left lower leg, initial encounter (principal); F41.9 Anxiety disorder, unspecified; K21.9 Gastro-esophageal reflux disease without esophagitis; X58.XXXA Exposure to other specified factors, initial encounter
CPT/HCPCS: 73700; 96372; 99284; A9270; J1170